=== PATIENT | female | born 1965 | race African-American/Black ===

== ENCOUNTER 2019-09-24 22:02 | Emergency (ER) | payer SELFPAY ==
[~2019-09-24] VITALS: Ht 175.3 cm; Wt 67.0 kg
[2019-09-24] MEDS ORDERED: HYDROCODONE/ACETAMINOPHEN 5/325MG TABLET PO ONE (23:15)
[2019-09-24] MEDS ORDERED: KETOROLAC 60MG/2ML VIAL IM ONE (23:15)
[2019-09-24 23:51] LABS: CREATINE KINASE 116 IU/L (26-192)
[2019-09-25 03:11] VITALS: BP 129/67
== END 2019-09-25 03:13 | disposition home or self-care (01) ==
LOC: ER 22:02
DX: M25.551 Pain in right hip (principal); X58.XXXA Exposure to other specified factors, initial encounter; Y93.89 Activity, other specified; Y92.9 Unspecified place or not applicable
CPT/HCPCS: 36415; 73502; 82550; 96372; 99284; J1885; Z7610